=== PATIENT | male | born 1985 | race Caucasian/White ===

== ENCOUNTER → 2021-01-25 | Outpatient (CLI) | payer BC, SELFPAY ==
[2021-01-09 08:20] VITALS: BMI 23.7
--- NOTE | 2021-01-25 13:40 | VAS_PTH ---
PATIENT: PAMELA ARREOLA [facility][id number] AGE/SX: 35/M ROOM: RE01/25/[address]: Dr. Gabriel Ballesteros MD : 1985 BED: DIS: 01/25/2021 SPEC #: [id number] RECD: 01/25/21 15:10 STATUS: HARMAN REQ #: [id number] BENITA: 01/25/21 13:[address]: Gabriel Ballesteros DEPT: SURGICAL PATHOLOGY RECD BY: Kerry Dumont ENTERED: 01/28/21 08:34 SP TYPE: VAS OTHR DR: Dr. Saad Henderson III, MD Tissues: A - Vas deferens, NOS B - Vas deferens, NOS Procedures: Surgery Specimen Level II HEADER OPERATION: Bilateral partial vasectomy PRE-OP DIAGNOSIS: Sterilization TISSUE SUBMITTED: A - Left vas deferens, B - Right vas deferens MICROSCOPIC DIAGNOSIS A. Left vas deferens, segmental vasectomy: Complete cross-section of vas deferens with no pathologic change. B. Right vas deferens, segmental vasectomy: Complete cross-section of vas deferens with no pathologic change. AM:roberto 01/29/2021 MICROSCOPIC DESCRIPTION Slides are reviewed. GROSS DESCRIPTION A - Received is one container designated left vas deferens. The specimen consists of a tubular segment of allan soft tissue measuring 0.5 cm in length and 0.2 cm in diameter. The entire specimen is submitted in one cassette. It will be sectioned at the time of embedding. B - Received is one container designated right vas deferens. The specimen consists of a tubular segment of allan soft tissue measuring 0.3 cm in length and 0.2 cm in diameter. The entire specimen is submitted in one cassette. It will be sectioned at the time of embedding. / SJ:roberto 01/28/21 TC:4 CPT: 63030 x2
== END | disposition home or self-care (01) ==
LOC: LABSPEC 15:22
PROVIDERS: PCP Family Medicine; Visit Provider Surgery
DX: Z30.2 Encounter for sterilization (principal)
CPT/HCPCS: 88302

== ENCOUNTER 2023-07-22 16:49 | Emergency (ER) | payer OTHER, SELFPAY ==
[2023-07-22 16:50] VITALS: BP 141/85; PULSE 63; RESP 18; TEMP 35.9; O2SAT 98; BMI 24.5
--- NOTE | 2023-07-22 17:16 | EX.ED.UPPERE ---
HPI History of Present Illness Chief Complaint: Laceration Narrative Narrative: 37-year-old male who denies significant past medical history presents with injury to his right index finger that he sustained earlier today at work, around 1130. This was approximately 6 hours ago. 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 A fitting slipped and he involves the skin on his right index finger and sustained a small laceration as well. He was able to bandage it up, and continued working until he was seen in the emergency department here today. Tetanus immunization is up-to-date, last year. He denies other injury. He presents for evaluation of the wounds on his right index finger. He is right-hand dominant. [facility] Medical History Encounter for sterilization Home Medications NK 07/22/23 [History Last Taken Unknown] Allergy/AdvReac Type Severity Reaction Status Date / Time amoxicillin Allergy Mild Rash Verified 07/22/23 16:50 Penicillins Allergy Mild Rash Verified 07/22/23 16:50 Family History Mother Arthritis Surgical History Hx of wisdom tooth extraction S/P vasectomy Social History household members: family Smoking Status: Never smoker Smokeless tobacco user: chewing tobacco alcohol intake: current alcohol intake frequency: holidays/special occasions only substance use type: does not use caffeine: Yes what type of physical activity do you participate in: weight training frequency: 5-6 times per week ROS ROS ED ROS Narrative Constitutional: No fever, no chills. HEENT: No sore throat. No neck pain. No loss of vision. No rhinorrhea. Cardiovascular: No chest pain. No palpitations. No pedal edema. Respiratory: No cough, no shortness of breath. Abdominal: No abdominal pain. No nausea. No vomiting. Genitourinary: No dysuria. No hematuria. Musculoskeletal: No myalgias. No arthralgias. Neurologic: No headaches. No dizziness. No lightheadedness. Skin: No rash. No change in color. Skin avulsion and laceration to right index finger. Psychiatric: No depression. No anxiety. EXAM Physical Exam Narrative Exam Narrative: Afebrile. Vital signs noted. HEENT: Normocephalic. Atraumatic. PERRL, EOMI. Neck soft and supple. No point tenderness or step off. Cardiovascular: Regular rate and rhythm. No murmurs, rubs, or gallops appreciated. Respiratory: No tachypnea. Lungs clear to auscultation bilaterally. Gastrointestinal: Abdomen soft, nontender, with normoactive bowel sounds. No rebound or guarding. Neurological: Awake. Alert. Nonfocal, nonlateralizing. Skin: No rash. Normal color. No pallor. +0.5 cm skin avulsion at PIP joint of right index finger on the lateral aspect/dorsum of the hand, no active bleeding. There appears to be a 1 cm laceration on the dorsum of the right index finger proximal to the skin avulsion with minimal active bleeding. Musculoskeletal: No pedal edema. Full range of motion extremities. Flexion and extension mechanism of right index finger intact. Good capillary refill. Palpable radial pulse. Const Vital Signs: 07/22/23 16:50 Temperature 96.6 F L Temperature Source Temporal Pulse Rate 63 Respiratory Rate 18 Blood Pressure 141/85 H Blood Pressure Mean 103 Pulse Ox 98 Oxygen Delivery Method Room Air MDM MDM MDM Narrative Medical decision making narrative: He was informed of the risk of infection and scarring as the wounds are almost 6 hours old. Additionally, as his skin avulsion is not amenable to suturing, this will be cleansed and dressing applied. He may require Gelfoam. Additionally, as the laceration initially appears to be only approximately 1 cm or less, I discussed with him letting it heal by secondary intent afterwards. His wounds will be cleansed and I will reevaluate and discuss any type of closure with him. Direct pressure was applied to his flap-like laceration that is approximately 1 cm. Hemostasis was achieved. Skin adhesive was used for wound closure with good skin approximation. His avulsion will be dressed with nonadherent dressing/Vaseline gauze, then dry sterile dressing. He will keep the area covered and do a wound check with his primary care provider or return to the emergency department with signs of infection. He states he does not want to claim Workmen's Compensation for his injury. I feel he can be discharged safely home with follow-up. Return instructions to the emergency department were reviewed. Disposition is discharged home in stable condition. Discharge Plan Triage Chief Complaint: Laceration ED Provider: Aba Locke Dx/Rx/DC Orders Clinical Impression: Avulsion of skin of finger without complication, Laceration of finger of right hand Instructions: ED Laceration, Hand: All Closures, ED Skin Avulsion, ED Laceration Hand with ... Prescriptions: No Action NK Primary Care Provider: Care Physician,No Primary Referrals: Brad Thapa MD [Med Staff - Active Staff] - As Needed NOT,DEFINED [Non-Staff] - Activity Restrictions/Additional Instructions: Keep right index finger wounds clean. You may change the dressing on your skin avulsion at least once a day. Return with fever, drainage of pus from wounds, new or worsening symptoms. Disposition Disposition: Home, Self Care
[2023-07-22 17:55] VITALS: RESP 16
== END 2023-07-22 18:14 | disposition home or self-care (01) ==
PROVIDERS: Emergency Provider Emergency Medicine; Visit Provider Emergency Medicine
DX: S61.210A Laceration without foreign body of right index finger without damage to nail, initial encounter (principal); W31.89XA Contact with other specified machinery, initial encounter; Y93.89 Activity, other specified; Y99.0 Civilian activity done for income or pay; Y92.89 Other specified places as the place of occurrence of the external cause; F17.220 Nicotine dependence, chewing tobacco, uncomplicated
CPT/HCPCS: 12001; 99282